=== PATIENT | female | born 1975 | race Caucasian/White ===

== ENCOUNTER 2017-11-04 22:22 | Outpatient (CLI) | payer OTHER ==
[2017-11-05] MEDS ORDERED: PRENATAL 19 TA1 EACH PO (09:11)
== END 2017-11-05 13:35 | disposition home or self-care (01) ==
LOC: OBS/DEL 22:22
DX: O60.02 Preterm labor without delivery, second trimester (principal); Z34.82 Encounter for supervision of other normal pregnancy, second trimester

== ENCOUNTER 2018-02-16 22:15 | Inpatient (IN) | payer OTHER ==
[~2018-02-16] VITALS: Ht 162.6 cm; Wt 2.7 kg
[~2018-02-16 22:15] MED LIST: PRENATAL 19 TA1 EACH PO
== END 2018-02-19 11:15 | disposition home or self-care (01) | DRG 775 ==
LOC: SURG-SUITE 22:15 → LDR 22:15 → SURG-SUITE 02-17 11:46
PROC: 0KQM0ZZ Repair Perineum Muscle, Open Approach (ICD-10-PCS; principal; 2018-02-16)
PROC: 10E0XZZ Delivery of Products of Conception, External Approach (ICD-10-PCS; 2018-02-16)
PROC: 4A1HXCZ Monitoring of Products of Conception, Cardiac Rate, External Approach (ICD-10-PCS; 2018-02-16)
PROC: 0W8NXZZ Division of Female Perineum, External Approach (ICD-10-PCS; 2018-02-16)
PROC: 4A033R1 Measurement of Arterial Saturation, Peripheral, Percutaneous Approach (ICD-10-PCS; 2018-02-16)
DX: O70.1 Second degree perineal laceration during delivery (principal); Z37.0 Single live birth; Z3A.36 36 weeks gestation of pregnancy